=== PATIENT | female | born 1990 | race Caucasian/White ===

== ENCOUNTER 2018-10-19 09:00 | Day surgery (SDC) | payer OTHER ==
--- NOTE | 2018-10-16 03:23 | HP ---
PREOPERATIVE HISTORY AND PHYSICAL: DATE OF ADMISSION/SURGERY: 10/19/18 DATE OF OFFICE VISIT/ENCOUNTER: 10/11/18 ATTENDING SURGEON: Lory Espinoza MD * (DICTATED BY UGO OSBORNE) PROCEDURE: Right wrist extensor tenosynovectomy. HISTORY OF PRESENT ILLNESS: This is a 27-year-old female, who has been followed by Dr. Espinoza for a Worker's Comp injury that occurred on 03/29/18. She was employed at [employer] at that time and was getting ice out of an ice machine when a large block of ice dropped onto her right hand. Since then, she has had continued pain on the dorsal aspect of the hand. She has tried conservative treatment measures including physical therapy, bracing, and a Flector patch; however, the pain persists. An MRI of the right wrist shows evidence of tenosynovitis, particularly at the extensor carpi radialis longus tendon. Because she has failed more conservative measures, she has now consented to proceed with surgical intervention in the form of a right wrist extensor tenosynovectomy. PAST MEDICAL HISTORY: Unremarkable. PAST SURGICAL HISTORY: Left middle finger. CURRENT MEDICATIONS: None. ALLERGIES: No known drug allergies. FAMILY MEDICAL HISTORY: Diabetes and heart disease. 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 She denies tobacco use and recreational drug use. She drinks alcohol on a rare occasion. REVIEW OF SYSTEMS: Negative for general, cephalic, cardiovascular, respiratory , GI, , other musculoskeletal, integumentary, endocrine, neurologic, and hematologic symptoms. Infectious Disease: Negative for MRSA, hepatitis C, HIV. PHYSICAL EXAMINATION GENERAL: A well-developed, well-nourished 27-year-old female, in no acute distress. VITAL SIGNS: Height 5 feet 2 inches, weight 181 pounds. Blood pressure 123/76 , pulse rate 72. HEENT: Normocephalic, atraumatic. Pupils are equal, round, and reactive to light and accommodation. Extraocular movements are intact. Throat is clear. NECK: Supple. No palpable lymph nodes. PULMONARY: Lungs are clear to auscultation bilaterally. No wheezes, rales, or rhonchi. CARDIOVASCULAR: Regular rate and rhythm. S1, S2. No murmurs, rubs, or gallops. No edema. ABDOMEN: Positive bowel sounds. Soft, nontender. NEUROLOGICAL: Alert and oriented x3. Cranial nerves II through XII are intact. Sensation is intact to light touch. MUSCULOSKELETAL: On exam of her right wrist, there is minimal swelling on the dorsum in the area of the extensor carpi radialis. She has tenderness to palpation there as well. She has good motion in her thumb and in her wrist with a slight increase in pain when she extends the wrist. There is no appreciable weakness on gross assessment. Neurovascular function is intact. IMAGING STUDIES: X-rays of the right wrist appear normal. MRI of the right wrist shows evidence of tenosynovitis at the extensor carpi radialis longus tendon. IMPRESSION: Right wrist extensor tenosynovitis. PLAN: The patient is scheduled to undergo a right wrist extensor tenosynovectomy with Dr. Espinoza on 10/19/18. She will return to the office 10 days postop for followup and suture removal. A prescription for Ultracet was e- scribed to the patient's pharmacy for postoperative pain management. UGO OSBORNE [id number]/[facility] #: [id number] [place]
[~2018-10-19 09:00] MED LIST: Buffered Lidocaine 1% SYRIN* 1 ML/SYRINGE INTRADERM ONE; Dexamethasone TAB* 4 MG PO ONE; DiMENhydriNATE IV* 50 MG/ML VIAL IV PUSH PRN; Famotidine IV* 10 MG/ML 2 ML (20 mg) IV ONE; Lactated Ringers 1000 ML Bag* 1,000 ML IV SCH; Lidocaine 1% INJ* 10 MG/ML 30 ML SDV ONE; Morphine 4 MG/ML VIAL (1 ml) 4 MG/ML VIAL IV PRN; Naloxone* 0.4 MG/ML 1 ML VIAL IV PRN; Ondansetron TAB* 4 MG PO ONE; PROCHLORPERAZINE INJ 5 MG/ML 2 ML VIAL IV PRN; fentaNYL* 50 MCG/ML 2 ML VIAL (100 MCG VIAL) IV PRN; oxyCODONE/Acetamin 5/325 MG* TAB PO PRN
[2018-10-19] MEDS ORDERED: Famotidine IV* 10 MG/ML 2 ML (20 mg) ONE (09:13)
[2018-10-19] MEDS ORDERED: Dexamethasone TAB* 4 MG ONE (09:13)
[2018-10-19] MEDS ORDERED: Ondansetron ODT TAB* 4 MG ONE (09:13)
[2018-10-19] MEDS ORDERED: KETAMINE HCL* 50 MG/ML 10 ML VIAL ONE (09:43)
[2018-10-19] MEDS ORDERED: fentaNYL* 50 MCG/ML 2 ML VIAL (100 MCG VIAL) ONE (09:43)
[2018-10-19] MEDS ORDERED: Midazolam* 1 MG/ML 5 ML VIAL (5 MG) ONE (09:43)
[2018-10-19] MEDS ORDERED: Lidocaine 2% PF * 5 ML VIAL ONE (10:40)
[2018-10-19] MEDS ORDERED: Propofol* 10 MG/ML 20 ML BTL ONE ×2 (10:40→10:41)
[2018-10-19] MEDS ORDERED: Ketorolac INJ* 30 MG/ML 1 ML VIAL ONE (10:41)
[2018-10-19 11:42] VITALS: BP 112/77
--- NOTE | 2018-10-19 13:44 | OP ---
CC: Dr. Espinoza OPERATIVE NOTE: DATE OF OPERATION: 10/19/18 DATE OF : 88 SURGEON: Lory Espinoza MD DIVINE HEALER: UGO Keyes ANESTHESIA: Local MAC. PRE-OP DIAGNOSIS: Tenosynovitis of the right wrist second extensor compartment. POST-OP DIAGNOSIS: Tenosynovitis of the right wrist second extensor compartment and the third extens or compartment. OPERATIVE PROCEDURE: Right wrist extensor tenosynovectomy, second and third compartments. ESTIMATED BLOOD LOSS: Zero. TOURNIQUET TIME: Approximately 15 minutes. INDICATION FOR PROCEDURE: Anais is a 27-year-old female who was injured at work several months ago , a heavy box dropped on her hand. She has had persistent right wrist pain. She has failed conserva tive treatment including physical therapy, rest, and cortisone injection. She has localized pain of the extensor tendons at the second and third compartments. She presents for extensor tenosynovectomy . DESCRIPTION OF PROCEDURE: The patient was brought to the operating room, was given a sedation anesth etic and a local infiltration of 10 cc of 1% plain lidocaine on the dorsal aspect of the right wrist. Skin of her right upper extremity was prepped and draped in the usual sterile fashion. The hand an d forearm were exsanguinated and the tourniquet elevated to 250 mmHg. A longitudinal incision was ma de centered over the area of maximum pain. We dissected through the subcutaneous tissue bluntly. Br anches of the radial sensory nerve were located and retracted. There was tenosynovitis surrounding th e EPL tendon, the ECRB tendon, and the ECRL tendon. This was thoroughly debrided and sent for Pathol ogtania. There was no injury to any of the tendons that needed repair. The wound was irrigated with tala ine and the skin edges were reapproximated with 4-0 nylon suture. The wound was dressed with Xerofor m, 4x4, Webril, and an David wrap. The patient tolerated the procedure well and was brought to the [facility] o[facility] room in good condition. [id number]/[facility] #: [id number]
== END 2018-10-19 11:58 | disposition home or self-care (01) ==
LOC: OREAST 09:00 → MERGE 09:00 → OREAST 11:58
PROVIDERS: ATTEND Orthopaedic Surgery
DX: M65.831 Other synovitis and tenosynovitis, right forearm (principal); M25.531 Pain in right wrist; W22.8XXA Striking against or struck by other objects, initial encounter; Y92.214 College as the place of occurrence of the external cause; Y99.0 Civilian activity done for income or pay
CPT/HCPCS: 81025; 88304; A9270-GY; J1885; J2250; J2704; J3010; J8540

== ENCOUNTER 2019-07-15 05:39 | Day surgery (SDC) | payer OTHER ==
[~2019-07-15 05:39] MED LIST changes: -Dexamethasone TAB* 4 MG PO ONE; -DiMENhydriNATE IV* 50 MG/ML VIAL IV PUSH PRN; -Famotidine IV* 10 MG/ML 2 ML (20 mg) IV ONE; -Lactated Ringers 1000 ML Bag* 1,000 ML IV SCH; -Lidocaine 1% INJ* 10 MG/ML 30 ML SDV ONE; -Morphine 4 MG/ML VIAL (1 ml) 4 MG/ML VIAL IV PRN; -Naloxone* 0.4 MG/ML 1 ML VIAL IV PRN; -Ondansetron TAB* 4 MG PO ONE; -PROCHLORPERAZINE INJ 5 MG/ML 2 ML VIAL IV PRN; -fentaNYL* 50 MCG/ML 2 ML VIAL (100 MCG VIAL) IV PRN; -oxyCODONE/Acetamin 5/325 MG* TAB PO PRN
[2019-07-15] MEDS ORDERED: Lactated Ringers 1000 ML Bag* 1,000 ML IV SCH (06:00)
[2019-07-15] MEDS ORDERED: Famotidine IV* 10 MG/ML 2 ML (20 mg) IV ONE (06:00)
[2019-07-15] MEDS ORDERED: Famotidine IV* 10 MG/ML 2 ML (20 mg) ONE (06:13)
[2019-07-15] MEDS ORDERED: Buffered Lidocaine 1% SYRIN* 1 ML/SYRINGE INTRADERM ONE (06:13)
[2019-07-15] MEDS ORDERED: ceFAZolin 2 GM in NS PREMIX(*) 2 GM/100 ML BAG IVPB ONE (06:14)
[2019-07-15] MEDS ORDERED: Bupivacaine 0.25% SDV* 30 ML ONE (07:07)
[2019-07-15] MEDS ORDERED: Lidocaine 1% INJ* 10 MG/ML 30 ML SDV ONE (07:07)
[2019-07-15] MEDS ORDERED: Propofol* 10 MG/ML 20 ML BTL ONE (07:42)
[2019-07-15] MEDS ORDERED: HYDROmorphone INJ1* 1 MG/ML SYRINGE ONE (07:42)
[2019-07-15] MEDS ORDERED: Dexamethasone IV* 4 MG/ML 1 ML (4 MG) ONE (08:54)
[2019-07-15] MEDS ORDERED: Naloxone* 0.4 MG/ML 1 ML VIAL IV PRN (09:06)
[2019-07-15] MEDS ORDERED: Acetaminophen TAB* 325 MG PO PRN (09:06)
[2019-07-15] MEDS ORDERED: HYDROcodone/ACETAMIN 5-325 MG* 1 TAB PO PRN (09:06)
[2019-07-15] MEDS ORDERED: fentaNYL* 50 MCG/ML 2 ML VIAL (100 MCG VIAL) IV PRN (09:06)
[2019-07-15] MEDS ORDERED: DiMENhydriNATE IV* 50 MG/ML VIAL IV PUSH PRN (09:06)
[2019-07-15] MEDS ORDERED: Ondansetron INJ* 2 MG/ML VIAL IV PRN (09:06)
[2019-07-15] MEDS ORDERED: Ondansetron INJ* 2 MG/ML VIAL ONE (09:35)
[2019-07-15] MEDS ORDERED: DiMENhydriNATE IV* 50 MG/ML VIAL ONE (12:44)
[2019-07-15 13:08] VITALS: BP 113/60
--- NOTE | 2019-07-15 19:46 | OP ---
DATE OF OPERATION: 07/15/19 [facility] DATE OF : 88 SURGEON: Javed Hills MD [employer] SALES ASSOCIATE: UGO Cary ANESTHESIOLOGIST: Dr. Alfaro. ANESTHESIA: General PRE-OP DIAGNOSES: 1. Right volar wrist ganglion cyst. 2. Right scaphotrapezoid degenerative disc disease, symptomatic fragment after prior distal pole of the scaphoid fracture. POST-OP DIAGNOSES: 1. Right volar wrist ganglion cyst. 2. Right scaphotrapezoid degenerative disc disease, symptomatic fragment after prior distal pole of the scaphoid fracture. OPERATIVE PROCEDURE: 1. Excision of right volar wrist ganglion cyst. 2. Excision of distal ulnar scaphoid pole at the site of prior injury. INDICATIONS: Ms. Dent is 28 years old. She has pretty severe radial and dorsoradial wrist pain. I have gotten x-rays and MRI. We have talked about treatment options. She wanted to proceed with surgery. She understands there is a chance of persistent pain despite surgery. ESTIMATED BLOOD LOSS: 2 mL. COMPLICATIONS: None. FINDINGS: See above and below. DESCRIPTION OF PROCEDURE: Ms. Dent was seen in the preoperative holding area. The correct side, site and procedure were identified. We came back to the operating room. The arm was prepped and draped in usual fashion. A time- out was performed. The arm was exsanguinated with the Esmarch and the tourniquet was inflated to 250 mmHg. I made a longitudinal incision over the volar radial wrist. Dissection was carried down, the cyst was identified, the radial artery was freed up and retracted radially. The cyst was taken all the way down to the volar wrist capsule where the stalk of the cyst was amputated and the area was cauterized with a Bovie. After the cyst was excised, I went ahead and used the mini C-arm fluoroscopy to confirm the area of the planned excision of the distal aspect of the scaphoid. The osteotome was brought in. The excision was performed. The piece came out cleanly. Once I had confirmed I had adequate resection with the mini C-arm fluoroscopy, I irrigated out the wound. The skin was closed with 4-0 Monocryl suture. Steri- Strips were applied. 0.25^% Marcaine was infiltrated. Wounds were dressed and a cock-up plaster wrist splint was applied. She was taken to the recovery room in stable condition. [id number]/[facility] #: [id number] [place]
== END 2019-07-15 13:12 | disposition home or self-care (01) ==
LOC: OR 05:39
PROVIDERS: ATTEND Orthopaedic Surgery Hand Surgery
DX: M67.431 Ganglion, right wrist (principal); S62.001D Unspecified fracture of navicular [scaphoid] bone of right wrist, subsequent encounter for fracture with routine healing; X58.XXXD Exposure to other specified factors, subsequent encounter; Y92.9 Unspecified place or not applicable
CPT/HCPCS: 76000; 81025; 88304; J0690; J1100; J1170; J1240; J2405; J2704; J3490